=== PATIENT | female | born 1995 | race African-American/Black ===

== ENCOUNTER → 2017-01-14 | Outpatient (CLI) | payer OTHER ==
--- NOTE | 2017-01-14 09:53 | RAD ---
Examination: Ultrasound pelvis History: History of left ovarian cyst Comparison: None available Technique: Transabdominal, transvaginal ultrasound examination of pelvis Findings: The uterus measures 9.4 x 6.8 x 4.4 cm. There is a 3.1 cm heterogeneous echogenicity identified in the uterus likely fibroid. The right ovary measures 3.4 x 1.8 x 2.7 cm. The left ovary measures 4.8 x 3.5 x 4.2 cm. Blood flow identified in the right and left ovaries. There is a complex appearing cystic structure identified in the left ovary measuring 3.7 x 3.3 x 2.4 cm containing echogenicity within. The endometrium measures 1.2 cm in thickness Impression: 1. Complex appearing cystic structure identified in the left ovary with echogenicity within could be a complex cyst or hemorrhagic cyst. Follow-up examination is recommended to document resolution. 2. 3.1 cm heterogeneous echogenicity identified in the uterus probably a fibroid.
== END | disposition home or self-care (01) ==
LOC: US 08:42
PROVIDERS: ATTEND Obstetrics & Gynecology
DX: N83.201 Unspecified ovarian cyst, right side (principal); N83.202 Unspecified ovarian cyst, left side
CPT/HCPCS: 76830; 76856

== ENCOUNTER 2018-04-03 09:05 | Emergency (ER) | payer OTHER ==
[~2018-04-03] VITALS: Ht 165.1 cm; Wt 77.0 kg
[2018-04-03] MEDS ORDERED: IV NORMAL SALINE 1,000ML 1,000 ML IV ONE (09:45)
[2018-04-03 09:46] LABS: INFLUENZA A PATIENT NEGATIVE (NEGATIVE); INFLUENZA B PATIENT NEGATIVE (NEGATIVE)
[2018-04-03] MEDS ORDERED: ONDANSETRON PF 4 MG/2 ML VIAL. IV ONE (10:10)
[2018-04-03] MEDS ORDERED: KETOROLAC 15 MG/ML VIAL. IV ONE (10:10)
[2018-04-03] MEDS ORDERED: FAMOTIDINE 20 MG/2 ML VIAL IVP ONE (10:10)
[2018-04-03 10:11] LABS: BASO # 0.1 x10^3/uL (0.0-0.2); BASO % 1 % (0-3); EOS # 0.1 x10^3/uL (0.0-0.7); EOS % 1 % (0-3); HEMATOCRIT 42.3 % (36.0-47.0); HEMOGLOBIN 13.5 g/dL (12.0-15.5); LYMPH # 1.1 x10^3/uL (1.0-4.8); LYMPH % 8 % (24-48); MEAN CORPUSCULAR HEMOGLOBIN 25 pg (25-35); MEAN CORPUSCULAR HGB CONC 32 g/dL (31-37); MEAN CORPUSCULAR VOLUME 78 fL (79-100); MONO # 0.7 x10^3/uL (0.0-1.1); MONO % 5 % (0-9); NEUT # 11.5 x10^3uL (1.8-7.7); NEUT % 86 % (31-73); PLATELET COUNT 389 x10^3/uL (140-400); RED BLOOD COUNT 5.43 x10^6/uL (3.50-5.40); RED CELL DISTRIBUTION WIDTH 14.7 % (11.5-14.5); WHITE BLOOD COUNT 13.5 x10^3/uL (4.0-11.0)
--- NOTE | 2018-04-03 10:15 | PHYS DOC ---
Past History Past Medical History: No Pertinent History Past Surgical History: No Surgical History Smoking: Non-smoker Alcohol Use: None Drug Use: None Adult General Chief Complaint Chief Complaint: NAUSEA/VOMITING/DIARRHEA HPI HPI Patient is a 22 yo female who presents with complaint of nausea, vomiting, and abdominal pain since last night. She reports several people at her work have been "out sick" but that her does not have similar symptoms. She also admits to headache (6/10 throbbing pain in the front of her head over right eye) , abdominal pain, general fatigue, and fever (101F measured at home) that resolved with 2 tablets extra strength tylenol which patient took at 6pm yesterday. Patient denies eating at restaurant yesterday or eating any new/ questionable foods. She denies recent travel. She reports the vomiting as being bilious and non bloody. She denies upper respiratory symptoms, chest pain, palpitations, shortness of breath. FDLMP 03/27/18 and patient reports taking OCP regularly. Review of Systems Review of Systems Constitutional: Admits fever and malaise [] Eyes: Denies change in visual acuity, redness, or eye pain [] HENT: Denies nasal congestion or sore throat [] Respiratory: Denies cough or shortness of breath [] Cardiovascular: Denies chest pain or palpitations[] GI: Admits to nausea, nonbloody vomitus, diarrhea, abdominal pain. [] : Denies dysuria or hematuria [] Musculoskeletal: Denies back pain or joint pain [] Integument: Denies rash or skin lesions [] Neurologic: admits to headache, denies focal weakness or sensory changes [] Complete systems were reviewed and found to be within normal limits, except as documented in this note. Current Medications Current Medications Current Medications Medications (Trade) Dose Ordered Sig/Kaleb Start Time Stop Time Status Last Admin Dose Admin Famotidine (Pepcid Vial) 20 mg 1X ONCE 04/03/18 10:10 04/03/18 10:11 Ketorolac Tromethamine (Toradol 15mg Vial) 15 mg 1X ONCE 04/03/18 10:10 04/03/18 10:11 Ondansetron HCl (Zofran) 4 mg 1X ONCE 04/03/18 10:10 04/03/18 10:11 Sodium Chloride 1,000 ml @ 1,000 mls/hr 1X ONCE 04/03/18 09:45 04/03/18 10:44 Allergies Allergies Allergies Coded Allergies Type Severity Reaction Last Updated Verified No Known Drug Allergies 04/03/18 No Physical Exam Physical Exam Constitutional: Well developed, well nourished, no acute distress, non-toxic appearance. [] HENT: Normocephalic, atraumatic, oropharynx moist, no oral exudates, nose normal. Mild pharyngeal erythema Eyes: PERRL, EOMI, conjunctiva normal, no discharge. [] Neck: Normal range of motion, no tenderness, supple, no stridor. [] Cardiovascular: Heart rate regular rhythm, no murmur [] Lungs & Thorax: Bilateral breath sounds clear to auscultation [] Abdomen: Soft, mild epigastric tenderness, no masses, no pulsatile masses, hyperactive bowel sounds all 4 quadrants. Extremities: No tenderness, ROM intact, no edema. [] Neurologic: Alert and oriented X 3, normal motor function, normal sensory function, no focal deficits noted. [] Psychologic: Affect normal, judgement normal, mood normal. [] Current Patient Data Vital Signs Vital Signs Date Time Temp Pulse Resp B/P (MAP) Pulse Ox O2 Delivery O2 Flow Rate FiO2 04/03/18 09:05 98.2 92 16 100 Room Air Lab Results Laboratory Tests Test 04/03/18 09:14 Influenza Type A (Rapid) Negative (NEGATIVE) Influenza Type B (Rapid) Negative (NEGATIVE) EKG EKG [] Radiology/Procedures Radiology/Procedures [] Course & Med Decision Making Course & Med Decision Making 22 yo female presents with complaint of nausea, vomiting, abdominal pain beginning last night. Patient reports having several episodes of nonbloody vomiting and diarrhea since last night. She also reports she had a fever of 101F that responded to tylenol yesterday. She reports having sick contacts at work but denies living with anyone with similar symptoms. She also denies eating at restaurants or trying new foods within the past 24h. She has no food or medication allergies. She denies having upper respiratory symptoms. On physical exam patient appears well nourished but fatigued with mild epigastric tenderness upon palpitation. Suspect this to be viral GI illness d/t acute onset of sx. Labs show minimal elevation in WBC and Mg slightly low. UA did not show infection. Patient is flu A/B negative. Pt treated with symptomatic supportive care, including fluids, ondansetron, and pepcid. Patient dc home with instructions to follow clear liquid diet until nausea and abdominal pain resolve. We also discussed BRAT diet for diarrhea. Discussed with patient that she is contagious. Also discussed with patient that small amounts of blood in vomitus are not concerning. Instructed patient to return if she has gross blood in vomit, chest pain, or symptoms do not resolve. Patient stable for discharge with outpatient follow-up with PCP. Discussed findings and plan with patient, who acknowledges understanding and agreement. Dragon Disclaimer Dragon Disclaimer This electronic medical record was generated, in whole or in part, using a voice recognition dictation system. Departure Departure: Impression: Primary Impression: Nausea vomiting and diarrhea Disposition: HOME, SELF-CARE Condition: IMPROVED Referrals: GOKUL WHITE PA-C (PCP) Patient Instructions: Diarrhea, Giht-vy-[id number], Diet for Diarrhea, Adult, Nausea and Vomiting, Osgs-[id number] Scripts Ondansetron (ONDANSETRON ODT) 4 Mg Tab.rapdis 1 TAB PO PRN Q6-8HRS PRN for NAUSEA, #16 TAB Prov: ZAYNAB PERALTA DO 04/03/18 Famotidine (PEPCID) 20 Mg Tablet 1 TAB PO BID for gastritis, #14 TAB 0 Refills Prov: ZAYNAB PERALTA DO 04/03/18 ZAYNAB PERALTA DO Apr 03, 2018 10:15
[2018-04-03 10:21] LABS: BACTERIA,URINE 0 /HPF (0-FEW); BILIRUBIN,URINE NEG (NEG); CLARITY,URINE HAZY; COLOR,URINE YELLOW; GLUCOSE,URINE NEG (NEG); NITRITE,URINE NEG (NEG); RBC,URINE RARE /HPF (0-2); SQUAMOUS EPITHELIAL CELL,UR FEW /LPF; UROBILINOGEN,URINE 0.2 mg/dL (0.2 mg/dL); WBC,URINE RARE /HPF (0-4)
[2018-04-03 10:27] LABS: ALBUMIN 3.9 g/dL (3.4-5.0); ALBUMIN/GLOBULIN RATIO 0.9 (1.0-1.7); CALCIUM 8.9 mg/dL (8.5-10.1); CREATININE 0.7 mg/dL (0.6-1.0); GFR 129.1; MAGNESIUM 1.5 mg/dL (1.8-2.4); POTASSIUM 4.3 mmol/L (3.5-5.1); TOTAL BILIRUBIN 0.3 mg/dL (0.2-1.0); TOTAL PROTEIN 8.4 g/dL (6.4-8.2)
[2018-04-03] MEDS ORDERED: FAMO-63 PO (10:38)
[2018-04-03] MEDS ORDERED: ONDA4TAB12 PO (10:38)
[2018-04-03 11:08] VITALS: BP 114/86
== END 2018-04-03 11:10 | disposition home or self-care (01) ==
LOC: ER 09:05
DX: R11.2 Nausea with vomiting, unspecified (principal); R19.7 Diarrhea, unspecified; R10.13 Epigastric pain
CPT/HCPCS: 36415; 80053; 81001; 81025; 83735; 85025; 87804; 96361; 96374; 96375; 99283; J1885; J2405; J3490; J7030

== ENCOUNTER 2018-06-09 08:15 | Emergency (ER) | payer OTHER ==
[~2018-06-09] VITALS: Ht 167.6 cm; Wt 73.0 kg
[~2018-06-09 08:15] MED LIST: FAMO-63 PO; ONDA4TAB12 PO
[2018-06-09] MEDS ORDERED: IV NORMAL SALINE 1,000ML 1,000 ML IV ONE (08:30)
--- NOTE | 2018-06-09 08:55 | PHYS DOC ---
Past History Past Medical History: Other Past Surgical History: Other Smoking: Non-smoker Alcohol Use: None Drug Use: None Adult General Chief Complaint Chief Complaint: CHEST PAIN HPI HPI 23-year-old female presents with chest pain. The patient [place] when she began to feel shortness of breath. She had some central chest tightness 2 out of 10, but her primary concern was she didn't feel like she can take a full breath. The patient had a similar episode 4 days ago that was much worse. She had run further at that time and had several minutes of shortness of breath afterward. The patient has not had difficulty exercising previous to this. She delivered a baby last October, but has been exercising regularly since February. This shortness of breath with exercise is new. Patient has no history of asthma or reactive airway disease. She denies drug use or smoking. On arrival to the ED, her chest pain is resolved. She has some slight discomfort with deep breathing. The patient has had no other symptoms of illness except for intermittent dry cough mostly with exertion. Denies fever or chills. Review of Systems Review of Systems Constitutional: Denies fever or chills [] Eyes: Denies change in visual acuity, redness, or eye pain [] HENT: Denies nasal congestion or sore throat [] Respiratory: Dry cough with shortness of breath[] Cardiovascular: No additional information not addressed in HPI [] GI: Denies abdominal pain, nausea, vomiting, bloody stools or diarrhea [] : Denies dysuria or hematuria [] Musculoskeletal: Denies back pain or joint pain [] Integument: Denies rash or skin lesions [] Neurologic: Denies headache, focal weakness or sensory changes [] Endocrine: Denies polyuria or polydipsia [] All other systems were reviewed and found to be within normal limits, except as documented in this note. Current Medications Current Medications Current Medications Medications (Trade) Dose Ordered Sig/Kaleb Start Time Stop Time Status Last Admin Dose Admin Sodium Chloride 1,000 ml @ 1,000 mls/hr 1X ONCE 06/09/18 08:30 06/09/18 09:29 06/09/18 08:47 1,000 MLS/HR Allergies Allergies Allergies Coded Allergies Type Severity Reaction Last Updated Verified No Known Drug Allergies 06/09/18 No Physical Exam Physical Exam Constitutional: Well developed, well nourished, no acute distress, non-toxic appearance. [] HENT: Normocephalic, atraumatic, bilateral external ears normal, oropharynx moist, no oral exudates, nose normal. [] Eyes: PERRLA, EOMI, conjunctiva normal, no discharge. [] Neck: Normal range of motion, no tenderness, supple, no stridor. [] Cardiovascular:Heart rate regular rhythm, no murmur [] Lungs & Thorax: Bilateral breath sounds clear to auscultation [] Abdomen: Bowel sounds normal, soft, no tenderness, no masses, no pulsatile masses. [] Skin: Warm, dry, no erythema, no rash. [] Back: No tenderness, no CVA tenderness. [] Extremities: No tenderness, no cyanosis, no clubbing, ROM intact, no edema. [] Neurologic: Alert and oriented X 3, normal motor function, normal sensory function, no focal deficits noted. [] Psychologic: Affect normal, judgement normal, mood normal. [] Current Patient Data Vital Signs Vital Signs Date Time Temp Pulse Resp B/P (MAP) Pulse Ox O2 Delivery O2 Flow Rate FiO2 06/09/18 08:46 90 20 133/65 (87) 100 Room Air 06/09/18 08:21 98.8 EKG EKG Sinus rhythm, rate 85, rightward axis, no ST elevations or depressions[] Radiology/Procedures Radiology/Procedures [] Impressions: PROCEDURE: CHEST PA LATERAL CLINICAL INDICATION: chest pain, sob
COMPARISON: None FINDINGS: No pneumothorax identified. Cardiac and mediastinal contours unremarkable. No pulmonary consolidation or acute airspace disease. No acute osseous abnormalities identified. IMPRESSION: No pulmonary consolidation or acute airspace disease. Electronically signed by: Richie Ko DO (06/09/2018 8:55 AM) [facility] DICTATED AND SIGNED BY: RICHIE KO DO DATE: 06/09/18 0855 CC: BLAYNE MENDEZ DO; GOKUL WHITE PA-C Course & Med Decision Making Course & Med Decision Making Pertinent Labs and Imaging studies reviewed. (See chart for details) The patient's HEART score is 0. Her troponin is negative. Her EKG is unremarkable. Her chest x-ray is unremarkable. The rest for labs are unremarkable. I have given the patient an albuterol treatment to see what effect this has. The albuterol has not changed the patient's breathing. She continues to have excellent oxygen saturation. I believe her prescription for Ventolin to try before she exercises to see if this could be exercise induced reactive airway disease. She will follow up as needed with her physician. She is stable for discharge at this time. [] Dragon Disclaimer Dragon Disclaimer This electronic medical record was generated, in whole or in part, using a voice recognition dictation system. Departure Departure: Impression: Primary Impression: Chest pain Additional Impression: Shortness of breath on exertion Disposition: HOME, SELF-CARE Condition: STABLE Referrals: GOKUL WHITE PA-C (PCP) Patient Instructions: Exercise-Induced Asthma-SportsMed, Shortness of Breath, Vqlj-vy-Uqls Scripts Albuterol Sulfate (VENTOLIN HFA INHALER) 18 Gm Hfa.aer.ad 1-2 PUFF IH PRN Q4HRS PRN for FOR ASTHMA, #1 INHALER 0 Refills Prov: BLAYNE MENDEZ DO 06/09/18 Problem Qualifiers Primary Impression: Chest pain Chest pain type: unspecified Qualified Codes: R07.9 - Chest pain, unspecified BLAYNE MENDEZ DO Jun 09, 2018 08:55
[2018-06-09 08:56] LABS: BASO # 0.1 x10^3/uL (0.0-0.2); BASO % 1 % (0-3); EOS % 0 % (0-3); HEMATOCRIT 41.7 % (36.0-47.0); HEMOGLOBIN 13.3 g/dL (12.0-15.5); LYMPH # 1.6 x10^3/uL (1.0-4.8); LYMPH % 16 % (24-48); MEAN CORPUSCULAR HEMOGLOBIN 24 pg (25-35); MEAN CORPUSCULAR HGB CONC 32 g/dL (31-37); MEAN CORPUSCULAR VOLUME 76 fL (79-100); MONO # 0.5 x10^3/uL (0.0-1.1); MONO % 5 % (0-9); NEUT # 7.8 x10^3uL (1.8-7.7); NEUT % 78 % (31-73); PLATELET COUNT 387 x10^3/uL (140-400); RED CELL DISTRIBUTION WIDTH 16.7 % (11.5-14.5)
--- NOTE | 2018-06-09 08:58 | RAD ---
PROCEDURE: CHEST PA LATERAL CLINICAL INDICATION: chest pain, sob
COMPARISON: None FINDINGS: No pneumothorax identified. Cardiac and mediastinal contours unremarkable. No pulmonary consolidation or acute airspace disease. No acute osseous abnormalities identified. IMPRESSION: No pulmonary consolidation or acute airspace disease. Electronically signed by: Richie Klein DO (06/09/2018 8:55 AM) [facility] [place]
[2018-06-09 09:09] LABS: ALBUMIN 4.2 g/dL (3.4-5.0); ALBUMIN/GLOBULIN RATIO 0.9 (1.0-1.7); CALCIUM 9.8 mg/dL (8.5-10.1); CREATININE 0.9 mg/dL (0.6-1.0); GFR 95.6; TOTAL BILIRUBIN 0.3 mg/dL (0.2-1.0)
[2018-06-09] MEDS ORDERED: ALBUTEROL SULFATE 2.5 MG/3 ML NEBU. NEB ONE (09:15)
--- NOTE | 2018-06-09 10:05 | EKG ---
[address] [address] Test Date: 2018-06-09 Test Time: 08:23:26 Pat Name: HUGH HUGHES Department: Room: Gender: F Project Development Manager: : 1995 Requested By: BLAYNE MENDEZ Order Number: [id number] Reading MD: Taqueria Ventura MD Measurements Intervals [place] Rate: 85 P: 45 [place]: 140 QRS: 91 QRSD: 76 T: 45 QT: 362 QTc: 431 Interpretive Statements SINUS RHYTHM NON-SPECIFIC ST/T CHANGES Electronically Signed On 06-10-2018 17:20:20 CDT by Taqueria Ventura MD
[2018-06-09] MEDS ORDERED: ALBU2.5V8 IH (10:24)
[2018-06-09 10:40] VITALS: BP 149/91
== END 2018-06-09 10:35 | disposition home or self-care (01) ==
LOC: ER 08:15
DX: R07.89 Other chest pain (principal); R06.02 Shortness of breath
CPT/HCPCS: 36415; 71046; 80053; 84484; 85025; 93005; 94640; 99284; J7613; J7030

== ENCOUNTER 2018-10-12 18:00 | Emergency (ER) | payer OTHER ==
[~2018-10-12] VITALS: Ht 167.6 cm; Wt 73.0 kg
[~2018-10-12 18:00] MED LIST changes: +ALBU2.5V8 IH
[2018-10-12 19:12] VITALS: BP 127/83
[2018-10-12] MEDS ORDERED: ORPH-16 PO (19:33)
--- NOTE | 2018-10-12 19:33 | PHYS DOC ---
Past History Additional Past Medical Histor: Chronic back pain Past Surgical History: No Surgical History Smoking: Non-smoker Alcohol Use: Rarely Drug Use: None Adult General Chief Complaint Chief Complaint: BACK PAIN OR INJURY HPI HPI 23-year-old female presents with report of chronic left-sided back pain. Denies radiation down her leg. Patient reports it has become worse after patient had her child. Patient previously had been in physical therapy for this pain and was recently directed to see a chiropractor. Patient reports she has been seeing a chiropractor without any significant improvement of her symptoms. Denies loss of bowel or bladder. Denies recent trauma. Denies fever or chills. Denies dysuria or hematuria. Denies rash. Review of Systems Review of Systems Constitutional: Denies fever or chills Eyes: Denies redness or eye pain HENT: Denies nasal congestion or sore throat Respiratory: Denies cough or shortness of breath Cardiovascular: Denies chest pain or palpitations GI: Denies abdominal pain, nausea, or vomiting : Denies dysuria or hematuria Musculoskeletal: Reports back pain; denies joint pain Integument: Denies rash or skin lesions Neurologic: Denies headache, focal weakness or sensory changes Complete systems were reviewed and found to be within normal limits, except as documented in this note. Allergies Allergies Allergies Coded Allergies Type Severity Reaction Last Updated Verified No Known Drug Allergies 06/09/18 No Physical Exam Physical Exam Constitutional: Well developed, well nourished, no acute distress, non-toxic appearance HENT: Normocephalic, atraumatic, oropharynx moist Eyes: Conjunctiva normal, no discharge Neck: Normal range of motion, no tenderness, supple Cardiovascular: Heart rate normal, regular rhythm Lungs & Thorax: Bilateral breath sounds clear to auscultation, no wheezing Skin: Warm, dry, no erythema, no rash Back: No midline tenderness, left-sided lower lumbar paraspinal tenderness to palpation, no CVA tenderness Extremities: No tenderness, ROM intact, no edema Neurologic: Alert and oriented X 3, no focal deficits noted Psychologic: Affect normal, judgement normal Current Patient Data Vital Signs Vital Signs Date Time Temp Pulse Resp B/P (MAP) Pulse Ox O2 Delivery O2 Flow Rate FiO2 10/12/18 19:12 98.9 87 16 100 Room Air EKG EKG [] Radiology/Procedures Radiology/Procedures [] Course & Med Decision Making Course & Med Decision Making Patient presents with chronic lower abdominal pain is been ongoing on for several years. Reports his been worse over the last several months. Patient reports she has seen a chiropractor and her PCP and has been doing physical therapy without improvement. Denies loss of bowel or bladder. Denies fever or ch ills. Denies hematuria. No midline bony and or numbness appreciated on physical exam. Patient reports she is driving home. Offered ketorolac IM which patient declined. Patient reports she will take [id number] ibuprofen upon returning home. Patient given a prescription for muscle relaxers and instructions to follow closely with Dr. Rodriguez with pain management at [facility]. Patient stable for discharge with outpatient follow-up with PCP/pain management. Discussed findings and plan with patient and friend, who acknowledge understanding and agreement. Dragon Disclaimer Dragon Disclaimer This electronic medical record was generated, in whole or in part, using a voice recognition dictation system. Departure Departure: Impression: Primary Impression: Chronic back pain Disposition: HOME, SELF-CARE Condition: STABLE Referrals: GOKUL WHITE PA-C (PCP) Patient Instructions: Back Pain, Adult, [id number], Chronic Back Pain Additional Instructions: Please continue over the counter Ibuprofen at 600mg (three over the counter t abs) three times daily as needed for pain. Use muscle relaxer as needed. Please follow closely Dr. Caleb Rodriguez (Pain management) at [facility]. Please call to schedule an appointment Scripts Orphenadrine Citrate (ORPHENADRINE CITRATE) 100 Mg Tablet.er 1 TAB PO BID PRN for MUSCLE PAIN, #20 TAB 0 Refills Prov: ZAYNAB PERALTA DO 10/12/18 Problem Qualifiers Primary Impression: Chronic back pain Back pain location: low back pain Back pain laterality: left Sciatica presence: without sciatica Qualified Codes: M54.5 - Low back pain; G89.29 - Other chronic pain ZAYNAB PERALTA DO Oct 12, 2018 19:33
== END 2018-10-12 19:37 | disposition home or self-care (01) ==
LOC: ER 18:00
DX: G89.29 Other chronic pain (principal); M54.5 Low back pain
CPT/HCPCS: 99283

== ENCOUNTER 2018-11-04 20:02 | Emergency (ER) | payer OTHER ==
[~2018-11-04] VITALS: Ht 167.6 cm; Wt 73.9 kg
[~2018-11-04 20:02] MED LIST changes: +ORPH-16 PO
[2018-11-04 20:34] VITALS: BP 137/76
--- NOTE | 2018-11-04 20:37 | PHYS DOC ---
Past History Additional Past Medical Histor: Chronic back pain Past Surgical History: No Surgical History Smoking: Non-smoker Alcohol Use: Rarely Drug Use: None Adult General Chief Complaint Chief Complaint: VAGINAL PROBLEM HPI HPI 23-year-old female presents with vaginal discharge. The patient noticed a change in her discharge the last couple of days. It is a creamy color and a bit thicker than usual. She denies pruritus. She tried Monistat vaginal suppository today, but it seemed to increase the irritation. Denies recent sexual activity. She has had a yeast infection and bacterial vaginosis in the past. She is not concerned for STD. Dysuria or increased urinary frequency. She denies fever or chills. She has no other complaints. Review of Systems Review of Systems Constitutional: Denies fever or chills [] Eyes: Denies change in visual acuity, redness, or eye pain [] HENT: Denies nasal congestion or sore throat [] Respiratory: Denies cough or shortness of breath [] Cardiovascular: No additional information not addressed in HPI [] GI: Denies abdominal pain, nausea, vomiting, bloody stools or diarrhea [] : Vaginal discharge[] Musculoskeletal: Denies back pain or joint pain [] Integument: Denies rash or skin lesions [] Neurologic: Denies headache, focal weakness or sensory changes [] Endocrine: Denies polyuria or polydipsia [] All other systems were reviewed and found to be within normal limits, except as documented in this note. Allergies Allergies Allergies Coded Allergies Type Severity Reaction Last Updated Verified No Known Drug Allergies 06/09/18 No Physical Exam Physical Exam Constitutional: Well developed, well nourished, no acute distress, non-toxic appearance. [] HENT: Normocephalic, atraumatic, bilateral external ears normal, oropharynx moist, no oral exudates, nose normal. [] Eyes: PERRLA, EOMI, conjunctiva normal, no discharge. [] Neck: Normal range of motion, no tenderness, supple, no stridor. [] Cardiovascular:Heart rate regular rhythm, no murmur [] Lungs & Thorax: Bilateral breath sounds clear to auscultation [] Abdomen: Bowel sounds normal, soft, no tenderness, no masses, no pulsatile masses. [] Skin: Warm, dry, no erythema, no rash. [] Back: No tenderness, no CVA tenderness. [] Extremities: No tenderness, no cyanosis, no clubbing, ROM intact, no edema. [] Neurologic: Alert and oriented X 3, normal motor function, normal sensory functi on, no focal deficits noted. [] Psychologic: Affect normal, judgement normal, mood normal. : Normal external exam, shaved pubic hair, tenderness with exam, thick white discharge[] Current Patient Data Lab Results Laboratory Tests Test 11/04/18 20:29 POC Urine HCG, Qualitative hcg negative (Negative) EKG EKG [] Radiology/Procedures Radiology/Procedures [] Course & Med Decision Making Course & Med Decision Making Pertinent Labs and Imaging studies reviewed. (See chart for details) The patient's urinalysis is negative for infection. Her wet prep does show yeast. I will give her Diflucan in the ED. Her GC chlamydia is pending. She will be notified if it is positive. The patient is stable for discharge at this time. [] Dragon Disclaimer Dragon Disclaimer This electronic medical record was generated, in whole or in part, using a voice recognition dictation system. Departure Departure: Impression: Primary Impression: Vaginal yeast infection Disposition: HOME, SELF-CARE Condition: STABLE Referrals: GOKUL WHITE PA-C (PCP) Patient Instructions: Vaginitis, [id number] BLAYNE MENDEZ DO Nov 04, 2018 20:37
[2018-11-04 20:49] LABS: BACTERIA,URINE FEW /HPF (0-FEW); BILIRUBIN,URINE NEG (NEG); CLARITY,URINE CLOUDY; COLOR,URINE STRAW; GLUCOSE,URINE NEG (NEG); NITRITE,URINE NEG (NEG); RBC,URINE OCC /HPF (0-2); SQUAMOUS EPITHELIAL CELL,UR OCC /LPF; UROBILINOGEN,URINE 0.2 mg/dL (0.2 mg/dL)
[2018-11-04] MEDS ORDERED: FLUCONAZOLE 100 MG TABLET. PO ONE (22:00)
[2018-11-07 18:09] LABS: CHLAMYDIA PROBE Negative (Negative)
== END 2018-11-04 22:00 | disposition home or self-care (01) ==
LOC: ER 20:02
DX: B37.3 Candidiasis of vulva and vagina (principal); G89.29 Other chronic pain; M54.89 Other dorsalgia
CPT/HCPCS: 36415; 81001; 81025; 87086; 87491; 87591; 99284; Q0111